=== PATIENT | male | born 2000 | race African-American/Black ===

== ENCOUNTER 2022-04-24 01:09 | Emergency (ER) | payer MEDICAID, OTHER ==
[~2022-04-24] VITALS: Ht 172.7 cm; Wt 80.0 kg
[2022-04-24 02:41] LABS: Potassium 3.6 mmol/L (3.5-5.1)
[2022-04-24 02:42] LABS: Albumin 3.6 g/dL (3.4-5.0); Calcium 8.8 mg/dL (8.5-10.1)
[2022-04-24 02:48] LABS: Bilirubin, Total 0.3 mg/dL (0.2-1.0); Total Protein 8.3 g/dL (6.4-8.2)
[2022-04-24 02:52] LABS: Basophils # (auto) 0 10 ^3/uL (0-0.2); Basophils % (auto) 0.3 % (0.0-2.0); Eosinophils # (auto) 0.2 10 ^3/uL (0-0.8); Eosinophils % (auto) 2.1 % (0.0-7.0); Hematocrit 45.3 % (41.0-53.0); Hemoglobin 14.9 g/dL (13.5-17.5); Lymphocytes # (auto) 3.1 10 ^3/uL (0.4-5.4); Mean Corpuscular Hemoglobin 28.5 pg (28.0-32.0); Mean Corpuscular Hgb Conc. 32.9 g/dL (32.0-36.0); Mean Corpuscular Volume 86.6 fL (80.0-100.0); Monocytes # (auto) 1.1 10 ^3/uL (0-1.3); Monocytes % (auto) 14.5 % (0.0-12.0); Neutrophils # (auto) 3.1 10 ^3/uL (1.6-8.6); Neutrophils % (auto) 41.1 % (37.0-80.0); Nucleated Red Blood Cells % 0.3 %; Red Blood Cells 5.23 10^6/uL (4.5-5.90); Red Cell Distribution Width 14.1 % (11.8-14.3); White Blood Cell 7.5 10^3/uL (4.4-10.8)
[2022-04-24] MEDS ORDERED: LIDOCAINE VISCOUS 2% 15ML UD PO ONE (03:45)
[2022-04-24] MEDS ORDERED: DONNATAL 5ml ORAL Elix (BELLADONNA ALK-PHENOBARB) PO ONE (03:45)
[2022-04-24] MEDS ORDERED: MAALOX PLUS or MAALOX 30 ML PO ONE (03:45)
[2022-04-24] MEDS ORDERED: PANT40TA2 PO (04:57)
[2022-04-24] MEDS ORDERED: SODIUM CHLORIDE 0.9% 1,000 ML IV ONE (06:15)
[2022-04-24 09:07] VITALS: BP 113/57
== END 2022-04-24 09:10 | disposition home or self-care (01) ==
LOC: ER 01:09 → EDBD 01:09 → ER 09:10
DX: K29.70 Gastritis, unspecified, without bleeding (principal)
CPT/HCPCS: 36415; 74176; 80053; 83690; 85025; 96360; 99284; J7030

== ENCOUNTER 2022-12-03 01:40 | Emergency (ER) | payer MEDICAID ==
[~2022-12-03] VITALS: Ht 182.9 cm; Wt 85.0 kg
[~2022-12-03 01:40] MED LIST: PANT40TA2 PO
[2022-12-03 01:45] VITALS: BP 114/68; PULSE 106; RESP 22; O2SAT 94
== END 2022-12-03 05:45 | disposition short-term general hospital (02) ==
LOC: ER 01:40 → EDBD 01:40 → ER 02:04
DX: S09.90XA Unspecified injury of head, initial encounter (principal); H57.12 Ocular pain, left eye; H53.8 Other visual disturbances; Z79.899 Other long term (current) drug therapy; V49.9XXA Car occupant (driver) (passenger) injured in unspecified traffic accident, initial encounter; Y93.89 Activity, other specified; Y92.89 Other specified places as the place of occurrence of the external cause; Y99.8 Other external cause status